=== PATIENT | male | born 1990 | race Asian ===

== ENCOUNTER 2017-06-18 13:33 | Emergency (ER) | payer SELFPAY ==
[~2017-06-18] VITALS: Ht 172.7 cm; Wt 74.0 kg
[2017-06-18 13:36] VITALS: Ht 172.7 cm; Wt 74.0 kg
== END 2017-06-18 14:15 | disposition left against medical advice (07) ==
LOC: FTE 13:33
DX: Z53.21 Procedure and treatment not carried out due to patient leaving prior to being seen by health care provider (principal)